=== PATIENT | male | born 1970 | race Caucasian/White ===

== ENCOUNTER → 2019-09-24 | Outpatient (REF) | payer OTHER | LOC: M LAB REF 10:26 | PROVIDERS: ATTEND Dermatology | DX: C44.211 Basal cell carcinoma of skin of unspecified ear and external auricular canal (principal) ==

== ENCOUNTER 2024-04-14 02:43 | Emergency (ER) | payer OTHER, BC ==
[~2024-04-14] VITALS: Ht 165.1 cm; Wt 93.2 kg
[2024-04-14 03:19] LABS: BASO # 0.1 10^3/uL (0.0-0.2); BASO % 0.7 % (0.0-1.0); EOS # 0.2 10^3/uL (0.0-0.5); EOS % 2.7 % (0.0-3.0); HEMATOCRIT 44.1 % (42.0-52.0); HEMOGLOBIN 15.4 g/dl (13.5-17.5); LYMPH # 2.1 10^3/uL (1.5-5.0); LYMPH % 30.4 % (24.0-44.0); MEAN CORPUSCULAR HEMOGLOBIN 30.4 pg (27.0-33.0); MEAN CORPUSCULAR HGB CONC 34.9 g/dl (32.0-36.5); MEAN CORPUSCULAR VOLUME 87.2 fl (80.0-96.0); MONO # 0.7 10^3/uL (0.0-0.8); MONO % 10.7 % (2.0-8.0); NEUTROPHILS # 3.7 10^3/uL (1.5-8.5); NEUTROPHILS % 55.1 % (36.0-66.0); PLATELET COUNT, AUTOMATED 244 10^3/uL (150-450); RED BLOOD COUNT 5.06 10^6/uL (4.30-6.10); WHITE BLOOD COUNT 6.7 10^3/uL (4.0-10.0)
[2024-04-14 03:39] LABS: CK-MB VALUE MASS < 1.0 NG/ML (<3.6)
[2024-04-14 03:41] LABS: BLOOD UREA NITROGEN 20 MG/DL (9-23); CALCIUM LEVEL 9.3 MG/DL (8.5-10.1); CARBON DIOXIDE LEVEL 24 MMOL/L (20-31); CHLORIDE LEVEL 109 MMOL/L (98-107); CREATININE FOR GFR 0.87 MG/DL (0.70-1.30); GLOMERULAR FILTRATION RATE > 60.0 (>56); GLUCOSE, FASTING 118 MG/DL (60-100); POTASSIUM SERUM 4.2 MMOL/L (3.5-5.1); SODIUM LEVEL 143 MMOL/L (136-145)
[2024-04-14 03:43] LABS: CPK CREATINE PHOSPHOKINASE 429 U/L (46-171); MB/CK RELATIVE INDEX 0.23 (< OR =4)
[2024-04-14] MEDS: ASPIRIN 81MG CHEW TABLET PO ONE (04:32)
[2024-04-14 04:50] LABS: CK-MB VALUE MASS < 1.0 NG/ML (<3.6)
[2024-04-14 04:51] LABS: CPK CREATINE PHOSPHOKINASE 413 U/L (46-171); MB/CK RELATIVE INDEX 0.24 (< OR =4)
[2024-04-14 05:15] VITALS: BP 147/84; TEMP 97.8; O2SAT 94
== END 2024-04-14 05:44 | disposition home or self-care (01) ==
LOC: M ED 02:43
DX: R07.89 Other chest pain (principal); K21.9 Gastro-esophageal reflux disease without esophagitis; I10 Essential (primary) hypertension; E78.5 Hyperlipidemia, unspecified; F17.290 Nicotine dependence, other tobacco product, uncomplicated; F10.10 Alcohol abuse, uncomplicated